=== PATIENT | female | born 1985 | race American Indian/Alaskan Native ===

== ENCOUNTER 2016-11-09 09:29 | Emergency (ER) | payer OTHER ==
[2016-11-09 09:39] VITALS: O2SAT 100; BMI 31.2
[2016-11-09 10:41] LABS: RBC URINE 13 /hpf (0-3); URINE BILIRUBIN NEGATIVE (NEGATIVE); URINE BLOOD 3+ (NEGATIVE); URINE COLOR Yellow (YELLOW); URINE GLUCOSE (UA) NORMAL (Normal); URINE KETONE NEGATIVE (NEGATIVE); URINE LEUKOCYTE ESTERASE TRACE Leu/uL (Negative); URINE PROTEIN NEGATIVE (NEGATIVE); URINE UROBILINOGEN NORMAL mg/dL (0.2-1.0); WBC URINE 7 /hpf (0-5)
--- NOTE | 2016-11-09 11:07 | C.PDOC ---
History Of Present Illness A 31 y/o female who is , presents to the ER c/o pelvic pain and vaginal bleeding for a week. Pt notes tacking a test on 10/30/16 and it came back positive, then the following day the vaginal bleeding began. Pt notes that her menstrual cycles usually last 4 days and are not painful. Pt denies fever, chills, vaginal discharge, dysuria, hematuria, shortness of breath, lightheadedness, or any other complaints. Time Seen by Provider: 11/09/16 09:43 Chief Complaint (Nursing): Abdominal Pain History Per: Patient History/Exam Limitations: no limitations Onset/Duration Of Symptoms: Days Current Symptoms Are (Timing): Still Present Severity: Mild Location Of Pain/Discomfort: Suprapubic Recent travel outside of the [place]: No Additional History Per: Patient Abnormal Vaginal Bleeding: Yes : 2 Para: 1 Past Medical History Reviewed: Historical Data, Nursing Documentation, Vital Signs Vital Signs: Last Vital Signs Temp 98.6 F 11/09/16 09:39 Pulse 86 11/09/16 09:39 Resp 16 11/09/16 09:39 BP 143/74 11/09/16 09:39 Pulse Ox 100 11/09/16 11:10 Family History: States: Unknown Family Hx - Social History Hx Tobacco Use: No Hx Alcohol Use: No Hx Substance Use: No - Immunization History Hx Tetanus Toxoid Vaccination: No Hx Influenza Vaccination: No Hx Pneumococcal Vaccination: No Review Of Systems Except As Marked, All Systems Reviewed And Found Negative. Constitutional: Negative for: Fever, Chills Respiratory: Negative for: Shortness of Breath Gastrointestinal: Positive for: Abdominal Pain (Pelvic paini) Genitourinary: Positive for: Vaginal Bleeding. Negative for: Dysuria, Hematuria , Vaginal Discharge Neurological: Negative for: Other (Lightheadedness) Physical Exam - Physical Exam Appears: Non-toxic, No Acute Distress Skin: Warm, Dry Head: Atraumatic, Normacephalic Eye(s): bilateral: Normal Inspection, EOMI Nose: Normal Cardiovascular: Rhythm Regular, No Murmur Respiratory: Normal Breath Sounds, No Rales, No Rhonchi, No Wheezing Gastrointestinal/Abdominal: Soft, No Tenderness Pelvic: Other (Pelvic tenderness) Neurological/Psych: Oriented x3, Normal Speech, Normal Cognition, Other (No focal deficit) ED Course And Treatment O2 Sat by Pulse Oximetry: 100 (RA) Pulse Ox Interpretation: Normal Progress Note: Impression: 31 y/o c/o pevic pain and vaginal bleeding for a week. Plans: Blood labs, US pelvis, Tylenol, reassess and disposition. Patient is resting comfortably, does not have active vaginal bleeding, denies any fever, shortness of breath, or lightheadedness. Patient was not orthostatic in ED. Patient was instructed to follow up with her WEB CONTENT MANAGER in 1-2 days, and to return to ED for worsening symptoms. - Scribe Statement The provider has reviewed the documentation as recorded by the Scribe Rylee alonzo All medical record entries made by the Fernandaibe were at my direction and personally dictated by me. I have reviewed the chart and agree that the record accurately reflects my personal performance of the history, physical exam, medical decision making, and the department course for this patient. I have also personally directed, reviewed, and agree with the discharge instructions and disposition.
[2016-11-09 11:13] LABS: BASO # 0.1 K/uL (0.0-0.2); BASO % 1.2 % (0.0-2.0); EOS # 0.1 K/uL (0.0-0.7); EOS % 0.8 % (0.0-4.0); HEMATOCRIT 37.7 % (34.0-47.0); LYMPH # 2.4 K/uL (1.0-4.3); MEAN CELL VOLUME 88.6 fL (81.0-99.0); MEAN CORPUSCULAR HEMOGLOBIN 28.7 pg (27.0-31.0); MEAN CORPUSCULAR HGB CONC 32.3 g/dL (33.0-37.0); MEAN PLATELET VOLUME 8.5 fL (7.2-11.7); MONO # 0.6 K/uL (0.0-0.8); MONO % 9.7 % (0.0-10.0); RED CELL DISTRIBUTION WIDTH 14.2 % (11.5-14.5); WHITE BLOOD COUNT 6.3 K/uL (4.8-10.8)
[2016-11-09 11:24] LABS: CHLORIDE 101 mmol/L (98-107); POTASSIUM 3.8 mmol/L (3.6-5.2); SODIUM 135 mmol/L (132-148)
[2016-11-09 11:26] LABS: ALB/GLOB RATIO 1.1 (1.0-2.1); ALKALINE PHOSPHATASE 51 U/L (38-126); AST/SGOT 22 U/L (14-36); BILIRUBIN,TOTAL 0.5 mg/dL (0.2-1.3); CARBON DIOXIDE 25 mmol/L (22-30); GFR AFRICAN-AMERICAN > 60
[2016-11-09 11:27] LABS: ALT/SGPT 25 U/L (9-52); BLOOD UREA NITROGEN 11 mg/dL (7-17); CALCIUM 8.8 mg/dl (8.6-10.4); GLUCOSE,RANDOM 82 mg/dL (65-105)
--- NOTE | 2016-11-09 11:33 | C.PDOC ---
History Of Present Illness A 31 y/o female who is , presents to the ER c/o pelvic pain and vaginal bleeding for a week. Pt notes tacking a test on 10/30/16 and it came back positive, then the following day the vaginal bleeding began. SInce then she has been having pelvic pain and bleeding. Notes the bleeding is spotting today. Pt notes that her menstrual cycles usually last 4 days with no pain. Pt denies fever, chills, vaginal discharge, dysuria, hematuria, shortness of breath , lightheadedness, or any other complaints. Time Seen by Provider: 11/09/16 09:43 Chief Complaint (Nursing): Abdominal Pain History Per: Patient History/Exam Limitations: no limitations Onset/Duration Of Symptoms: Days Current Symptoms Are (Timing): Still Present Severity: Mild Location Of Pain/Discomfort: Suprapubic Recent travel outside of the [place]: No Additional History Per: Patient Abnormal Vaginal Bleeding: Yes : 2 Para: 1 Past Medical History Reviewed: Historical Data, Nursing Documentation, Vital Signs Vital Signs: Last Vital Signs Temp 97.9 F 11/09/16 14:50 Pulse 55 L 11/09/16 14:50 Resp 17 11/09/16 14:50 BP 99/60 L 11/09/16 14:50 Pulse Ox 100 11/09/16 14:50 Family History: States: Unknown Family Hx - Social History Hx Tobacco Use: No Hx Alcohol Use: No Hx Substance Use: No - Immunization History Hx Tetanus Toxoid Vaccination: No Hx Influenza Vaccination: No Hx Pneumococcal Vaccination: No Review Of Systems Except As Marked, All Systems Reviewed And Found Negative. Constitutional: Negative for: Fever, Chills Respiratory: Negative for: Shortness of Breath Gastrointestinal: Positive for: Abdominal Pain (Pelvic pain) Genitourinary: Positive for: Vaginal Bleeding. Negative for: Dysuria, Hematuria , Vaginal Discharge Neurological: Negative for: Other (Lightheadedness) Physical Exam - Physical Exam Appears: Well, Non-toxic, No Acute Distress Skin: Normal Color, Warm, Dry Head: Atraumatic, Normacephalic Eye(s): bilateral: Normal Inspection, EOMI Nose: Normal Oral Mucosa: Moist Chest: Symmetrical Cardiovascular: Rhythm Regular, No Murmur Respiratory: Normal Breath Sounds, No Accessory Muscle Use, Other (speaking in full sentences) Gastrointestinal/Abdominal: Soft, Tenderness ((+) suprapubic tenderness) Back: No CVA Tenderness, No Vertebral Tenderness Neurological/Psych: Oriented x3, Normal Speech, No Other (No focal deficit) ED Course And Treatment - Laboratory Results Result Diagrams: 11/09/16 10:56 11/09/16 10:56 O2 Sat by Pulse Oximetry: 100 (RA) Pulse Ox Interpretation: Normal - CT Scan/US US Pelvis Other Rad Studies (CT/US): Interpreted By Me, Read By Radiologist CT/US Interpretation: Pelvic ultrasound. History: Pelvic pain. Comparison: None available. Technique: Real-time sonography was performed through the pelvis utilizing transabdominal and transvaginal techniques. Findings: Positive test with beta HCG level measuring 41. Uterus: 10.1 x 4.0 x 5.9 centimeters. Heterogeneous echotexture. Retroverted. Small fundal echogenic lesion measuring 8 x 5 x 10 millimeters suggestive for a possible fibroid lesion. No discrete intrauterine identified. Nabothian cysts at the level of the cervix. Endometrium measures 9 millimeters, within normal limits. Small amount of free fluid within the pelvic cul-de-sac. Right ovary: 3.4 x 2.0 x 2.5 centimeters. Normal flow. Left ovary: 3.1 x 1.8 x 2.8 centimeters. Normal flow. Impression: Positive test. No discrete intrauterine identified. This may represent an early intrauterine versus missed versus ectopic . Clinical correlation. Small 1.1 centimeter echogenic lesion in the uterine fundus suggestive for a fibroid lesion. Small amount of free fluid noted within the pelvic cul-de-sac. Limited 1st trimester ultrasound for viability purposes only. Continued interval followup with serial ultrasound, serial HCG levels, and gynecological consultation would be helpful if clinically indicated. Progress Note: Impression: 31 y/o c/o pevic pain and vaginal bleeding for a week. Plans: Blood labs, US pelvis, Tylenol, reassess and disposition. Patient is resting comfortably. Denies any fever, shortness of breath, or lightheadedness. Discussed ectopic vs miscarriage vs early preg via translaotr. Patient was instructed to follow up with her TRACTOR TRAILER MECHANIC in 1-2 days, and to return to ED for worsening symptoms. Disposition - Disposition Disposition: HOME/ ROUTINE Disposition Time: 13:16 Condition: STABLE Additional Instructions: Follow up with your OB/ER in 2-3 days for re-evaluation. Return to ER if symptoms persist or worsen. Prescriptions: Multivit/Folic Acid/I [ Plus] 1 tab PO DAILY #30 tab Instructions: Threatened Miscarriage (ED) - Clinical Impression Clinical Impression: First trimester bleeding - Scribe Statement The provider has reviewed the documentation as recorded by the Scribe Rylee alonzo All medical record entries made by the Fernandaibe were at my direction and personally dictated by me. I have reviewed the chart and agree that the record accurately reflects my personal performance of the history, physical exam, medical decision making, and the department course for this patient. I have also personally directed, reviewed, and agree with the discharge instructions and disposition.
--- NOTE | 2016-11-09 13:09 | US ---
Pelvic ultrasound History: Pelvic pain. Comparison: None available. Technique: Real-time sonography was performed through the pelvis utilizing transabdominal and transvaginal techniques. Findings: Positive test with beta HCG level measuring 41. Uterus: 10.1 x 4.0 x 5.9 centimeters. Heterogeneous echotexture. Retroverted. Small fundal echogenic lesion measuring 8 x 5 x 10 millimeters suggestive for a possible fibroid lesion. No discrete intrauterine identified. Nabothian cysts at the level of the cervix. Endometrium measures 9 millimeters, within normal limits. Small amount of free fluid within the pelvic cul-de-sac. Right ovary: 3.4 x 2.0 x 2.5 centimeters. Normal flow. Left ovary: 3.1 x 1.8 x 2.8 centimeters. Normal flow. Impression: Positive test. No discrete intrauterine identified. This may represent an early intrauterine versus missed versus ectopic . Clinical correlation. Small 1.1 centimeter echogenic lesion in the uterine fundus suggestive for a fibroid lesion. Small amount of free fluid noted within the pelvic cul-de-sac. Limited 1st trimester ultrasound for viability purposes only. Continued interval followup with serial ultrasound, serial HCG levels, and gynecological consultation would be helpful if clinically indicated.
[2016-11-09 14:51] VITALS: BP 99/60; PULSE 55; RESP 17; TEMP 97.9
== END 2016-11-09 15:00 | disposition home or self-care (01) ==
LOC: C.ER 09:29
DX: O20.9 Hemorrhage in early pregnancy, unspecified (principal); Z3A.00 Weeks of gestation of pregnancy not specified